=== PATIENT | male | born 1990 | race Caucasian/White ===

== ENCOUNTER → 2019-03-04 08:51 | Outpatient (CLI) | payer OTHER, SELFPAY ==
--- NOTE | 2019-03-04 | DI.MRI.S_ITS ---
PROCEDURE: MR CHEST WO CON INDICATIONS: pain in right shoulder, evaluate for pectoralis tear on the right. TECHNIQUE: Axial and oblique coronal T1 spin echo and T2 spin echo with fat saturation, sagittal T1 spin echo and STIR acquired through the affected chest wall. COMPARISON: None. FINDINGS: Image quality: Excellent. Soft tissues: The sternal and clavicular heads of the pectoralis major muscle demonstrate normal bulk and internal signal. The pectoralis major tendon appears intact as it inserts onto the humeral shaft along the lateral lip of the intertubercular groove. The nearby quadrilateral space appears normal on axial images. No soft tissue fluid collections. Other visualized muscles appear intact, including the pectoralis minor and coracobrachialis. Bones: Visualized bony structures of the chest wall and upper arm appear intact, without focal marrow edema. IMPRESSION: No muscular or tendinous injury is found, a source of asymmetric right-sided chest pain suggestive of pectoralis tear is not identified. Dictated by: Kenton Lopez M.D. on 03/06/2019 at 9:41 Approved by: Kenton Lopez M.D. on 03/06/2019 at 9:43
== END ==
PROVIDERS: Visit Provider Orthopaedic Surgery
DX: M25.511 Pain in right shoulder (principal)
CPT/HCPCS: 71550

== ENCOUNTER 2021-01-15 16:26 | Emergency (ER) | payer OTHER, SELFPAY ==
[2021-01-15] VITALS (9 sets, daily range): BP systolic 132–169; BP diastolic 76–94; PULSE 99–111; RESP 13–21; TEMP 36.6; O2SAT 95–99; BMI 36.0
--- NOTE | 2021-01-15 16:45 | DI.RAD.S_ITS ---
PROCEDURE: XR CHEST 1V INDICATIONS: chest pain TECHNIQUE: One view of the chest was acquired. COMPARISON: None. FINDINGS: Surgical changes and devices: None. Lungs and pleura: Lungs are clear. No pleural effusions or pneumothorax. Mediastinum: Mediastinal contours appear normal. Heart size is normal. Bones and chest wall: No suspicious bony lesions. Overlying soft tissues appear unremarkable. IMPRESSION: No acute cardiopulmonary pathology. Dictated by: Sheldon Rodriguez M.D. on 01/15/2021 at 17:02 Approved by: Sheldon Rodriguez M.D. on 01/15/2021 at 17:02
[2021-01-15 17:01] LABS: Add Manual Diff / Slide Review NO; Basophils Absolute Auto 100 /uL (0-100); Basophils Percent Auto 0.4 % (0-2); Eosinophils Absolute Auto 500 /uL (0-450); Eosinophils Percent Auto 3.5 % (2-4); Hematocrit 50.2 % (41-53); Hemoglobin 16.9 g/dL (13.5-17.5); Lymphocytes Absolute Auto 1700 /uL (1100-4500); Lymphocytes Percent Auto 12.9 % (25-40); Mean Corpuscular HGB Conc 33.6 % (30-36); Mean Corpuscular Hemoglobin 29.9 PG (26-34); Mean Corpuscular Volume 88.9 fL (80-100); Monocytes Absolute Auto 1200 /uL (0-900); Monocytes Percent Auto 8.8 % (3-14); Neutrophils Absolute Auto 9900 /uL (1500-7000); Neutrophils Percent Auto 74.4 % (50-75); Platelet Count 333 X10^3/uL (150-400); Red Blood Cell Count 5.64 X10^6/uL (4.5-5.9); Red Cell Distribution Width 14.4 % (11.6-14.8); White Blood Cell Count 13.4 X10^3/uL (4.5-11.0)
[2021-01-15 17:05] LABS: Alanine Aminotransferase 54 IU/L (<50); Albumin 4.6 g/dL (3.5-5.0); Albumin Globulin Ratio 1.5 (1.0-2.8); Alkaline Phosphatase 48 U/L (38-126); Aspartate Aminotransferase 42 IU/L (17-59); BUN Creatinine Ratio 6.5 (6-22); Bilirubin Total 0.5 mg/dL (0.2-1.3); Blood Urea Nitrogen 7 mg/dL (9-20); Calcium 9.7 mg/dL (8.4-10.2); Carbon Dioxide 33 mmol/L (22-32); Chloride 102 mmol/L (98-107); Creatine Kinase 215 U/L (55-170); Estimated Glomerular Filt Rate > 60.0 mL/min (>60); Globulin 3.1 g/dL (1.7-4.1); Glucose 62 mg/dL (70-100); HEMOLYSIS < 15 (0-50); Lipase 134 U/L (23-300); Potassium 4.1 mmol/L (3.4-5.1); Sodium 143 mmol/L (137-145); Total Protein 7.7 g/dL (6.3-8.2)
[2021-01-15 17:16] LABS: Troponin I < 0.012 ng/mL (0.01-0.034)
[2021-01-15 17:20] LABS: CKMB % Relative Index 0.3 % (1.5-5.0)
--- NOTE | 2021-01-15 17:23 | PC.NURSE ---
Pt had pfizer vaccine 9 days ago. Reports chest tightness since receiving vaccine. Currently rates at 3/10, worse with exertion. Injection site to left deltoid swollen and warm.
[2021-01-15 17:34] LABS: D Dimer 224 ng/mL (<230)
--- NOTE | 2021-01-15 17:50 | ED_ITS ---
HPI - Chest Pain General Chief Complaint: Chest Pain Stated Complaint: reaction-covid vaccine, chest heavy, hx pulm embol Time Seen by Provider: 01/15/21 17:50 Source: patient Mode of arrival: Ambulatory History of Present Illness HPI narrative: 30-year-old male nonsmoker with history of pulmonary embolism after knee surgery presents with a chief complaint of some shortness of breath and chest heaviness over the past week. He states that he has a burning in his lungs that is worse with deep breath. He denies any runny nose or sore throat. He has had no fever or chills. He denies nausea, vomiting or diarrhea. He states that in many ways this feels similar to when he had blood clots previously. He was only on anticoagulant for about 3 months and no longer takes prescription medications. He started feeling ill within 12 hours of receiving his 1st Pfizer vaccine 9 days ago. Review of Systems Review of Systems Narrative: GENERAL: Denies chills, fatigue, malaise, fever, sweats. HEENT: Denies sinus pain, ear pain, sore throat, difficulty swallowing, dizziness. RESPIRATORY: See HPI CARDIOVASCULAR: See HPI GASTROINTESTINAL: Denies nausea, vomiting, abdominal pain, diarrhea, constipation, melena. : Denies dysuria, frequency, incontinence, hematuria, urinary retention. MUSCULOSKELETAL: denies weakness, joint pain, or bony pain SKIN: Denies rash, skin lesions, or other NEUROLOGIC: Denies weakness, headache, numbness, change in speech, confusion, seizures, incoordination. PSYCHIATRIC: No concerning psychosocial issues. 12 point review of systems is negative except for those stated above Patient History Social History Smoking Status: Never smoker Smoking Status: Never smoker alcohol intake frequency: other Substance Use Type: does not use Exam Narrative Exam Narrative: GENERAL: [30] year old patient appears stated age. Well- developed patient, in minimal distress, no significant work of breathing, no need for supplemental oxygen EYES: Pupils equal round and reactive. Extraocular motions intact. No scleral icterus. No injection or drainage. ENT: Nose without bleeding, purulent drainage. Throat without erythema, tonsillar hypertrophy or exudate. Airway patent. NECK: Trachea midline. Non tender CARDIOVASCULAR: Regular rate and rhythm without murmurs, gallops, or rubs. RESPIRATORY: Clear to auscultation. Breath sounds equal bilaterally. No wheezes, rales, or rhonchi. GASTROINTESTINAL: Abdomen soft, non-tender, nondistended. EXTREMITIES: No edema or joint tenderness. BACK: Nontender without deformity or crepitance. No flank tenderness. NEURO: AOx3. SKIN: No rash or erythema of visible areas Initial Vital Signs Initial Vital Signs: Vital Signs Temperature 97.8 F 01/15/21 16:35 Pulse Rate 104 H 01/15/21 16:35 Respiratory Rate 18 01/15/21 16:35 Blood Pressure 165/94 H 01/15/21 16:35 Pulse Oximetry 97 01/15/21 16:35 Course Orders Ordered: ED Orders 01/15/21 16:45 XR chest 1V Stat C-Reactive Protein Quant Stat Complete Blood Count AUTO DIFF Stat Comprehensive Metabolic Panel Stat D Dimer Stat Erythrocyte Sedimentation Rate Stat Lipase Stat NT-proBNP (BNP-Adult 18+) Stat Troponin & CK Cardiac Panel Stat EKG-12 Lead Stat 01/15/21 17:18 COVID19 -Nasal swab/Pre-Proc Stat 01/15/21 18:27 CT angio chest PE protocol Stat Vital Signs Vital signs: Vital Signs - 8 hr 01/15/21 16:35 01/15/21 16:40 01/15/21 17:00 Temperature 97.8 F Pulse Rate 104 H 111 H 107 H Respiratory Rate 18 17 21 Blood Pressure 165/94 H Pulse Oximetry 97 99 98 01/15/21 17:20 01/15/21 17:30 01/15/21 18:00 Temperature Pulse Rate 108 H 105 H 105 H Respiratory Rate 16 16 17 Blood Pressure 169/85 H 165/79 H 142/76 H Pulse Oximetry 96 97 96 01/15/21 18:30 01/15/21 19:00 01/15/21 19:30 Temperature Pulse Rate 105 H 99 H 99 H Respiratory Rate 17 13 13 Blood Pressure 132/80 140/79 133/77 Pulse Oximetry 95 98 96 MDM - Chest Pain Lab Data Result diagrams: 01/15/21 16:45 01/15/21 16:45 Labs: Lab Results 01/15/21 01/15/21 01/15/21 Range/Units 16:45 16:45 16:45 WBC 13.4 H (4.5-11.0) X10^3/uL RBC 5.64 (4.5-5.9) X10^6/uL Hgb 16.9 (13.5-17.5) g/dL Hct 50.2 (41-53) % MCV 88.9 (80-100) fL MCH 29.9 (26-34) PG MCHC 33.6 (30-36) % RDW 14.4 (11.6-14.8) % Plt Count 333 (150-400) X10^3/uL Neut % (Auto) 74.4 (50-75) % Lymph % (Auto) 12.9 L (25-40) % [place] % (Auto) 8.8 (3-14) % Eos % (Auto) 3.5 (2-4) % Baso % (Auto) 0.4 (0-2) % Neut # (Auto) 9900 H (0447-7810) /uL Lymph # (Auto) 1700 (6652-0125) /uL [place] # (Auto) 1200 H (0-900) /uL Eos # (Auto) 500 H (0-450) /uL Baso # (Auto) 100 (0-100) /uL ESR (0-15) MM/HR D-Dimer 224 (<230) ng/mL Sodium 143 (137-145) mmol/L Potassium 4.1 (3.4-5.1) mmol/L Chloride 102 (98-107) mmol/L Carbon Dioxide 33 H (22-32) mmol/L BUN 7 L (9-20) mg/dL Creatinine 1.07 (0.66-1.25) mg/dL Estimated GFR > 60.0 (>60) mL/min BUN/Creatinine Ratio 6.5 (6-22) Glucose 62 L (70-100) mg/dL Calcium 9.7 (8.4-10.2) mg/dL Total Bilirubin 0.5 (0.2-1.3) mg/dL AST 42 (17-59) IU/L ALT 54 H (<50) IU/L Alkaline Phosphatase 48 (38-126) U/L Total Creatine Kinase 215 H (55-170) U/L CK-MB (CK-2) 0.60 (<2.37) ng/mL CK-MB (CK-2) Rel Index 0.3 L (1.5-5.0) % Troponin I < 0.012 (0.01-0.034) ng/mL C-Reactive Protein (<1.0) mg/dL NT-Pro-B Natriuret Pep (<125) pg/mL Total Protein 7.7 (6.3-8.2) g/dL Albumin 4.6 (3.5-5.0) g/dL Globulin 3.1 (1.7-4.1) g/dL Albumin/Globulin Ratio 1.5 (1.0-2.8) Lipase 134 (23-300) U/L SARS-CoV-2 (PCR) (Negative) 01/15/21 01/15/21 01/15/21 Range/Units 16:45 16:45 16:45 WBC (4.5-11.0) X10^3/uL RBC (4.5-5.9) X10^6/uL Hgb (13.5-17.5) g/dL Hct (41-53) % MCV (80-100) fL MCH (26-34) PG MCHC (30-36) % RDW (11.6-14.8) % Plt Count (150-400) X10^3/uL Neut % (Auto) (50-75) % Lymph % (Auto) (25-40) % [place] % (Auto) (3-14) % Eos % (Auto) (2-4) % Baso % (Auto) (0-2) % Neut # (Auto) (5827-9677) /uL Lymph # (Auto) (7842-3042) /uL [place] # (Auto) (0-900) /uL Eos # (Auto) (0-450) /uL Baso # (Auto) (0-100) /uL ESR 1 (0-15) MM/HR D-Dimer (<230) ng/mL Sodium (137-145) mmol/L Potassium (3.4-5.1) mmol/L Chloride (98-107) mmol/L Carbon Dioxide (22-32) mmol/L BUN (9-20) mg/dL Creatinine (0.66-1.25) mg/dL Estimated GFR (>60) mL/min BUN/Creatinine Ratio (6-22) Glucose (70-100) mg/dL Calcium (8.4-10.2) mg/dL Total Bilirubin (0.2-1.3) mg/dL AST (17-59) IU/L ALT (<50) IU/L Alkaline Phosphatase (38-126) U/L Total Creatine Kinase (55-170) U/L CK-MB (CK-2) (<2.37) ng/mL CK-MB (CK-2) Rel Index (1.5-5.0) % Troponin I (0.01-0.034) ng/mL C-Reactive Protein 0.7 (<1.0) mg/dL NT-Pro-B Natriuret Pep < 11 (<125) pg/mL Total Protein (6.3-8.2) g/dL Albumin (3.5-5.0) g/dL Globulin (1.7-4.1) g/dL Albumin/Globulin Ratio (1.0-2.8) Lipase (23-300) U/L SARS-CoV-2 (PCR) (Negative) 01/15/21 Range/Units 17:18 WBC (4.5-11.0) X10^3/uL RBC (4.5-5.9) X10^6/uL Hgb (13.5-17.5) g/dL Hct (41-53) % MCV (80-100) fL MCH (26-34) PG MCHC (30-36) % RDW (11.6-14.8) % Plt Count (150-400) X10^3/uL Neut % (Auto) (50-75) % Lymph % (Auto) (25-40) % [place] % (Auto) (3-14) % Eos % (Auto) (2-4) % Baso % (Auto) (0-2) % Neut # (Auto) (6905-5065) /uL Lymph # (Auto) (9700-6860) /uL [place] # (Auto) (0-900) /uL Eos # (Auto) (0-450) /uL Baso # (Auto) (0-100) /uL ESR (0-15) MM/HR D-Dimer (<230) ng/mL Sodium (137-145) mmol/L Potassium (3.4-5.1) mmol/L Chloride (98-107) mmol/L Carbon Dioxide (22-32) mmol/L BUN (9-20) mg/dL Creatinine (0.66-1.25) mg/dL Estimated GFR (>60) mL/min BUN/Creatinine Ratio (6-22) Glucose (70-100) mg/dL Calcium (8.4-10.2) mg/dL Total Bilirubin (0.2-1.3) mg/dL AST (17-59) IU/L ALT (<50) IU/L Alkaline Phosphatase (38-126) U/L Total Creatine Kinase (55-170) U/L CK-MB (CK-2) (<2.37) ng/mL CK-MB (CK-2) Rel Index (1.5-5.0) % Troponin I (0.01-0.034) ng/mL C-Reactive Protein (<1.0) mg/dL NT-Pro-B Natriuret Pep (<125) pg/mL Total Protein (6.3-8.2) g/dL Albumin (3.5-5.0) g/dL Globulin (1.7-4.1) g/dL Albumin/Globulin Ratio (1.0-2.8) Lipase (23-300) U/L SARS-CoV-2 (PCR) Negative (Negative) Imaging Data CT scan - chest: Radiologist's Impression: [place] [address] CT Scan Report Signed Patient: Miguel Sexton MR#: [id number] : 1990 Acct:[id number] Age/Sex: 30 / M Date of Service: 01/15/21 Loc: ED Accession Number: [id number] ?? Procedure: CT angio chest PE protocol Ordering Provider: Luke Gauthier D.O. PROCEDURE:? CT ANGIO CHEST PE PROTOCOL ? INDICATIONS:? chest pain, SOB, tachycardia, hx PE, feels same ? TECHNIQUE:? After the administration of intravenous contrast, 2 mm thick sections acquired from the pulmonary apices to the posterior costophrenic angles.? 3-dimensional maximum intensity projection (MIP) coronal and sagittal reformats were then acquired through the thorax.? For radiation dose reduction, the following was used:? automated exposure control, adjustment of mA and/or kV according to patient size.? ? COMPARISON:? None. ? FINDINGS:? Image quality:? Excellent.? ? Pulmonary arteries:? Pulmonary arteries are normal in size, and demonstrate no intraluminal filling defects to suggest central pulmonary embolism.? ? Lungs and pleura:? Scattered skeletal hazy ground-glass opacities are seen in posterior aspect of bilateral lung diaz suggestive of mild pulmonary edema.? No acute airspace opacity.? No pleural effusions or pneumothorax.? Central and peripheral airways are patent.? ? Mediastinum:? Heart size is normal, without pericardial effusion.? No mediastinal or hilar adenopathy.? Thoracic aorta is normal in caliber and enhancement.? Esophagus is normal in caliber, without hiatal hernia.? ? Bones and chest wall:? No suspicious bony lesions.? Ribs and thoracic spine appear intact throughout.? Thyroid gland is within normal limits.? No axillary or supraclavicular adenopathy.? ? Abdomen:? Visualized upper abdominal solid organs appear normal in the early arterial phase of enhancement.? ? IMPRESSION:? 1. No evidence of pulmonary emboli.? No thoracic aortic aneurysm or dissection. 2. Subtle hazy ground-glass opacity in bilateral lung diaz suggestive of mild pulmonary edema versus pneumonitis.? No focal infiltrate, pleural effusion or pneumothorax.? Airway is patent. 3.? No mediastinal or hilar lymphadenopathy by size criteria.? ? ? Dictated by: Sheldon Rodriguez M.D. on 01/15/2021 at 19:01 ? ? Approved by: Sheldon Rodriguez M.D. on 01/15/2021 at 19:04 ? ECG Data Interpretation: EKG is normal sinus rhythm rate [102 ] and free of any signs of ischemia or ectopy. No ST segmental elevation or depression. T waves inverted in III. [facility] Narrative Medical decision making narrative: Patient reports chest heaviness and burning since receiving his COVID vaccination. He is in no respiratory distress and requires no supplemental oxygen. EKG shows inverted T-waves in lead 3, he is mildly tachycardic and given his history of PE I had a low threshold for CT a ngiogram. Though his D-dimer was technically negative CT angiogram was ordered and largely unremarkable except for what appears to be a pneumonitis. There is no evidence of pneumonia, pulmonary embolism, pericardial effusion. Cardiac ischemia thought unlikely given lack of exertional symptoms, negative troponin, nonischemic findings on EKG. Pericarditis considered but thought unlikely given lack of classic symptoms, EKG findings or elevated inflammatory markers. Seems most likely that patient developed a pneumonitis in the aftermath of his vaccination. Patient given extensive return precautions and questions answered to his apparent satisfaction Discharge Plan Departure Patient Disposition: Home Clinical Impression: Pneumonitis Instructions: DI for Atypical Chest Pain Activity Restrictions/Additional Instructions: *You have been diagnosed with [atypical chest pain, likely due to an inflammatory process called pneumonitis. Your physical exam, vital signs, labs and CT scan are very reassuring. There is no evidence of a blood clot, your COVID swab was negative *What to do: *Please continue to take your regular medications as directed. [ ] New medication prescriptions sent to your pharmacy: [ ] [ ] New medication written as a paper prescription [x ] No new medications given *Please follow up with your primary care provider in 2-3 days, call for an appointment. Let them know you were seen in the Emergency Department and that we ask that you be seen in follow up. We will electronically transmit a record of today's note if your PCP is in our system *If you do not have a primary care provider please contact the [facility] Resource line at [phone]. They will ask some questions about your medical history and help get you set up with a doctor in the community. *Return to Emergency Department if you should have any new, worsening or concerning symptoms, such as [fever greater than 101 F, shaking chills, worsening pain, persistent vomiting or other bothersome symptoms]
[2021-01-15 17:56] LABS: COVID19 -Nasal RAPID Negative (Negative)
--- NOTE | 2021-01-15 18:27 | DI.CT.S_ITS ---
PROCEDURE: CT ANGIO CHEST PE PROTOCOL INDICATIONS: chest pain, SOB, tachycardia, hx PE, feels same TECHNIQUE: After the administration of intravenous contrast, 2 mm thick sections acquired from the pulmonary apices to the posterior costophrenic angles. 3-dimensional maximum intensity projection (MIP) coronal and sagittal reformats were then acquired through the thorax. For radiation dose reduction, the following was used: automated exposure control, adjustment of mA and/or kV according to patient size. COMPARISON: None. FINDINGS: Image quality: Excellent. Pulmonary arteries: Pulmonary arteries are normal in size, and demonstrate no intraluminal filling defects to suggest central pulmonary embolism. Lungs and pleura: Scattered skeletal hazy ground-glass opacities are seen in posterior aspect of bilateral lung diaz suggestive of mild pulmonary edema. No acute airspace opacity. No pleural effusions or pneumothorax. Central and peripheral airways are patent. Mediastinum: Heart size is normal, without pericardial effusion. No mediastinal or hilar adenopathy. Thoracic aorta is normal in caliber and enhancement. Esophagus is normal in caliber, without hiatal hernia. Bones and chest wall: No suspicious bony lesions. Ribs and thoracic spine appear intact throughout. Thyroid gland is within normal limits. No axillary or supraclavicular adenopathy. Abdomen: Visualized upper abdominal solid organs appear normal in the early arterial phase of enhancement. IMPRESSION: 1. No evidence of pulmonary emboli. No thoracic aortic aneurysm or dissection. 2. Subtle hazy ground-glass opacity in bilateral lung diaz suggestive of mild pulmonary edema versus pneumonitis. No focal infiltrate, pleural effusion or pneumothorax. Airway is patent. 3. No mediastinal or hilar lymphadenopathy by size criteria. Dictated by: Sheldon Rodriguez M.D. on 01/15/2021 at 19:01 Approved by: Sheldon Rodriguez M.D. on 01/15/2021 at 19:04
[2021-01-15 18:48] LABS: C-Reactive Protein Quant 0.7 mg/dL (<1.0)
[2021-01-15 18:53] LABS: NT-proBNP (BNP-Adult 18+) < 11 pg/mL (<125)
[2021-01-15 18:55] LABS: Erythrocyte Sedimentation Rate 1 MM/HR (0-15)
== END 2021-01-15 20:01 | disposition home or self-care (01) ==
PROVIDERS: Emergency Medicine; Emergency Provider Emergency Medicine
DX: J18.9 Pneumonia, unspecified organism (principal); R00.0 Tachycardia, unspecified; R06.02 Shortness of breath; R07.9 Chest pain, unspecified; Z20.822 Contact with and (suspected) exposure to COVID-19
CPT/HCPCS: 36415; 71045; 71275; 80053; 82550; 82553; 83690; 83880; 84484; 85025; 85379; 85651; 86140; 87635; 93005; 99284; C9803

== ENCOUNTER → 2022-03-26 11:04 | Outpatient (CLI) | payer OTHER, SELFPAY ==
--- NOTE | 2022-03-26 11:12 | DI.RAD.S_ITS ---
PROCEDURE: XR FOOT RT 2V INDICATIONS: ARTHRITIS TECHNIQUE: 2 views of the foot were acquired. COMPARISON: None. FINDINGS: Bones: No fractures or dislocations. No suspicious bony lesions. Soft tissues: No tibiotalar joint effusion. Achilles tendon appears normal. IMPRESSION: Normal right foot radiographs Approved by: Jose Carbajal M.D. on 03/26/2022 at 17:46
[2022-03-26 12:01] LABS: COVID19 -Nasal RAPID Negative (Negative)
== END ==
PROVIDERS: Referring Provider Internal Medicine; Visit Provider Internal Medicine
DX: M13.80 Other specified arthritis, unspecified site (principal); I26.99 Other pulmonary embolism without acute cor pulmonale; Z20.822 Contact with and (suspected) exposure to COVID-19
CPT/HCPCS: 73620; 87635; C9803

== ENCOUNTER → 2022-03-26 11:06 | Outpatient (CLI) | payer OTHER, SELFPAY ==
--- NOTE | 2022-04-08 07:56 | PM.PFT.1 ---
Pulmonary Function Test Referral & Results Date Patient Seen: 03/26/22 Requesting provider: Kostas Sandy Results: The spirometry demonstrates an FVC of 4.65 L which is 88% of predicted. The FEV1 was measured at 4.03 L which is 94% of predicted. The FEV1/FVC ratio was 87 which is 106% of predicted. Following the administration of bronchodilator there was no notable change to above normal numbers. Interpretation: This study demonstrates normal forced spirometry
== END ==
PROVIDERS: Referring Provider Chiropractor; Visit Provider Chiropractor
DX: M13.80 Other specified arthritis, unspecified site (principal); Z20.822 Contact with and (suspected) exposure to COVID-19; I26.99 Other pulmonary embolism without acute cor pulmonale
CPT/HCPCS: 73620; 87635; 94060; C9803